=== PATIENT | male | born 1980 | race Caucasian/White ===

== ENCOUNTER 2024-11-28 18:38 | Emergency (ER) | payer OTHER ==
[~2024-11-28] VITALS: Ht 188 cm; Wt 90.9 kg
[2024-11-28 20:38] LABS: BASOPHILS % (AUTO) 3.3 % (0.0-2.0); EOSINOPHILS % (AUTO) 2.6 % (1.0-6.0); HEMATOCRIT 30.4 % (41-53); HEMOGLOBIN 10.3 g/dL (13.5-17.5); LYMPHOCYTES # (AUTO) 0.7 K/uL (1.0-4.8); LYMPHOCYTES % (AUTO) 12.2 % (22.0-44.0); MEAN CORPUSCULAR HEMOGLOBIN 29.9 pg (26.0-34.0); MEAN CORPUSCULAR HGB CONC 33.9 G/dL (31.0-37.0); MEAN CORPUSCULAR VOLUME 88 fL (80-100); MONOCYTES # (AUTO) 0.5 K/uL (0.1-1.0); NEUTROPHILS # (AUTO) 4.3 K/uL (1.8-7.7); NEUTROPHILS % (AUTO) 72.9 % (40.0-70.0); PLATELET COUNT (AUTO) 305 K/uL (150-450); RED BLOOD CELL COUNT(AUTO) 3.45 MIL/uL (4.50-5.90); RED CELL DISTRIBUTION WIDTH 14.6 % (11.5-14.5); WHITE BLOOD COUNT (AUTO) 5.9 K/uL (4.5-11.0)
[2024-11-28 20:45] LABS: ANION GAP 3 mmol/L (8-16); CALCIUM, TOTAL 8.7 mg/dL (8.8-10.5); CARBON DIOXIDE 32 mmol/L (22-29); CHLORIDE 102 mmol/L (98-107); GLOMERULAR FILTR. RATE CALC > 60 mL/min (>60); GLUCOSE,RANDOM 117 mg/dL (70-110); POTASSIUM 4.1 mmol/L (3.5-5.1); SODIUM SERUM 137 mmol/L (136-145); UREA NITROGEN, BLOOD 16 mg/dL (7-18)
[2024-11-28 20:56] LABS: TROPONIN I-HIGH SENSITIVITY 4 ng/L (<76)
[2024-11-28] MEDS ORDERED: CARI6CAP PO (21:58)
[2024-11-28] MEDS ORDERED: IBUP-1492 PO (21:58)
[2024-11-28] MEDS ORDERED: WHEA360P PO (21:58)
[2024-11-28] MEDS ORDERED: OXCA300T70 PO (21:58)
[2024-11-28] MEDS ORDERED: TRIA16.911 NASAL (21:58)
[2024-11-28] MEDS ORDERED: NALO4SPR NASAL (21:58)
[2024-11-28] MEDS ORDERED: FURO20TA5 PO (21:58)
[2024-11-28] MEDS ORDERED: diclofenac TP (21:58)
[2024-11-28] MEDS ORDERED: BUPR1FIL7 SL (21:58)
[2024-11-28] MEDS ORDERED: SODI88SP6 NASAL (21:58)
[2024-11-28] MEDS ORDERED: POLY17PO47 PO (21:58)
[2024-11-28] MEDS ORDERED: PRAZ2 PO (21:58)
[2024-11-28] MEDS ORDERED: HYDR30CR39 TP (21:58)
[2024-11-28] MEDS ORDERED: OMEP-148 PO (21:58)
[2024-11-29] MEDS: BUPRENORPHINE HCL/NALOXONE HCL 8-2 MG SUBLINGUAL TABLET SL ONE (00:32)
[2024-11-29] MEDS: OXcarbazepine 300 MG TABLET PO ONE (00:32)
[2024-11-29] MEDS: FLUTICASONE PROPIONATE 50 MCG/SPRAY 16 GM NASAL SPRAY NASAL ONE (00:32)
[2024-11-29 00:40] VITALS: BP 119/68; PULSE 71; RESP 16; TEMP 97.3; O2SAT 99
== END 2024-11-29 02:28 ==
LOC: EMS 18:38
DX: R60.0 Localized edema (principal); G40.909 Epilepsy, unspecified, not intractable, without status epilepticus; R06.02 Shortness of breath; Z79.899 Other long term (current) drug therapy
CPT/HCPCS: 71045; 80048; 83880; 84484; 85025; 85379; 85730; 93005; 93970; 99285; 36415-L1; 36415-TC